=== PATIENT | female | born 1955 ===

== ENCOUNTER 2022-02-15 08:35 | Day surgery (SDC) | payer OTHER | END 2022-02-15 14:15 | disposition home or self-care (01) | LOC: AMB-ENDOS 08:35 | PROVIDERS: ATTEND Colon & Rectal Surgery | DX: K63.5 Polyp of colon (principal); K62.1 Rectal polyp; K64.9 Unspecified hemorrhoids; K57.90 Diverticulosis of intestine, part unspecified, without perforation or abscess without bleeding ==